=== PATIENT | male | born 1950 | race Caucasian/White ===

== ENCOUNTER 2017-10-16 08:54 | Day surgery (SDC) | payer MEDICARE, OTHER ==
--- NOTE | 2017-10-15 09:58 | HP ---
DATE OF SURGERY: 10/16/2017 ANTICIPATED PROCEDURE: Colonoscopy. HISTORY OF PRESENT ILLNESS: The patient presents for follow up colonoscopy. His last was five to six years ago. He had polyps in the past. He had resection in the past. PAST MEDICAL HISTORY: ALLERGIES: ALLERGRA, AMOXICILLIN. MEDICATIONS: Aspirin, Toujeo, gemfibrozil, amlodipine, clopidogrel. PAST SURGICAL HISTORY: Left carotid endarterectomy and stent. SOCIAL HISTORY: Negative. FAMILY HISTORY: Negative. PHYSICAL EXAMINATION: VITAL SIGNS: Normal. CHEST: Clear. COR: Regular. ABDOMEN: Satisfactory. IMPRESSION: Follow up of polyps. PLAN: Colonoscopy.
[~2017-10-16 08:54] MED LIST: Lactated Ringers 1,000 ML IV SCH
[2017-10-16] MEDS ORDERED: DIPRIVAN 200 MG/20 ML IV ONE (08:55)
[2017-10-16] MEDS ORDERED: Lactated Ringers 1,000 ML IV ONE (09:07)
[2017-10-16 11:44] VITALS: BP 118/77; PULSE 88; O2SAT 96
--- NOTE | 2017-10-16 12:35 | OP ---
SURGERY DATE/TIME: 10/16/2017 1030 PREOPERATIVE DIAGNOSIS: Screening. POSTOPERATIVE DIAGNOSIS: Normal. PROCEDURE: Colonoscopy complete to cecum. SURGEON: Sam Estrada M.D. ANESTHESIA: MAC. COMPLICATIONS: None. CONDITION: Stable. INDICATION: A patient requiring evaluation and presents for screening. He has not had endoscopic examination to date. DESCRIPTION OF PROCEDURE: Taken to the endoscopy suite. Left lateral decubitus position. MAC sedation provided by anesthesia. The anesthesia level was satisfactory. Anal digital examination the prostate is smooth and normal. The scope introduced. The scope advanced up the cecum. He had a very long redundant colon and it had fairly substantial width. Most of the colon within 4 inch width category. Base of the cecum, ileocecal valve were normal. Ascending, hepatic, transverse, splenic, descending, sigmoid, rectum, anus was normal. IMPRESSION: Normal examination. PLAN: Follow up five to ten years.
== END 2017-10-16 11:53 | disposition home or self-care (01) ==
LOC: SDC 08:54
PROVIDERS: ATTEND Surgery
DX: Z12.11 Encounter for screening for malignant neoplasm of colon (principal); Z86.010 Personal history of colon polyps; Z90.49 Acquired absence of other specified parts of digestive tract
CPT/HCPCS: J2704